=== PATIENT | female | born 1960 | race Two or more races ===

== ENCOUNTER 2020-02-03 15:50 | Emergency (ER) | payer MEDICAID ==
[~2020-02-03] VITALS: Ht 154.9 cm; Wt 72.4 kg
[2020-02-03 15:51] VITALS: BP 116/85
--- NOTE | 2020-02-03 17:51 | NUR ---
TASK RN: FERNY
== END 2020-02-03 18:09 | disposition left against medical advice (07) ==
LOC: ED 16:00
DX: M54.2 Cervicalgia (principal)
CPT/HCPCS: 99281